=== PATIENT | female | born 1985 | race Two or more races ===

== ENCOUNTER 2020-08-25 08:53 | Emergency (ER) | payer MEDICAID ==
[~2020-08-25] VITALS: Ht 160 cm; Wt 72.6 kg
[2020-08-25 08:55] VITALS: BP 114/67
== END 2020-08-25 09:44 | disposition home or self-care (01) ==
LOC: ER 08:53
DX: F11.90 Opioid use, unspecified, uncomplicated (principal)
CPT/HCPCS: 93005

== ENCOUNTER 2020-10-14 06:33 | Emergency (ER) | payer MEDICAID ==
[~2020-10-14] VITALS: Ht 160 cm; Wt 72.6 kg
[2020-10-14] MEDS ORDERED: SODIUM CHLORIDE 0.9% 1,000 ML IV ONE ×2 (07:00)
[2020-10-14 08:06] VITALS: BP 96/66
[2020-10-14 09:12] LABS: Urine Bacteria NONE SEEN /hpf (None Seen); Urine Blood 2+ /uL (Negative); Urine Mucus FEW (None Seen); Urine Specific Gravity 1.024 (1.001-1.035); Urine Sperm PRESENT /hpf (None Seen); Urine WBC 4 /hpf (0 - 5)
[2020-10-14] MEDS ORDERED: FAMOTIDINE (10MG/ML) 2ML VL IV ONE (09:30)
[2020-10-14] MEDS ORDERED: MORPHINE SULFATE 4 MG/ML SYR/VIAL IV ONE (09:30)
[2020-10-14] MEDS ORDERED: ONDANSETRON HCL 4 MG/2 ML VIAL IV ONE (09:30)
== END 2020-10-14 09:32 | disposition home or self-care (01) ==
LOC: ER 06:33
DX: O26.891 Other specified pregnancy related conditions, first trimester (principal); R56.9 Unspecified convulsions; Z3A.10 10 weeks gestation of pregnancy; Z88.1 Allergy status to other antibiotic agents; Z87.442 Personal history of urinary calculi
CPT/HCPCS: 36415; 81001; 84702; 96360; 99283; J7030

== ENCOUNTER 2020-10-21 10:43 | Inpatient (IN) | payer MEDICAID ==
[~2020-10-21] VITALS: Ht 160 cm; Wt 72.7 kg
[2020-10-21 11:18] LABS: Basophils # (auto) 0 10 ^3/uL (0-0.2); Basophils % (auto) 0.6 % (0.0-2.0); Eosinophils # (auto) 0.2 10 ^3/uL (0-0.8); Eosinophils % (auto) 3.9 % (0.0-7.0); Hematocrit 29.6 % (36.0-46.0); Hemoglobin 9.9 g/dL (12.2-16.2); Lymphocytes # (auto) 1.7 10 ^3/uL (0.4-5.4); Lymphocytes % (auto) 27.8 % (10.0-50.0); Mean Corpuscular Hgb Conc. 33.4 g/dL (32.0-36.0); Mean Corpuscular Volume 80.8 fL (80.0-100.0); Monocytes # (auto) 0.5 10 ^3/uL (0-1.3); Monocytes % (auto) 8.3 % (0.0-12.0); Neutrophils # (auto) 3.6 10 ^3/uL (1.6-8.6); Neutrophils % (auto) 59.4 % (37.0-80.0); Platelet Count (auto) 287 10^3/uL (140-450); Red Blood Cells 3.67 10^6/uL (4.0-5.20); White Blood Cell 6.1 10^3/uL (4.4-10.8)
[2020-10-21 11:30] LABS: Albumin 3.5 g/dL (3.4-5.0); Anion Gap 5 (5-15); Blood Urea Nitrogen 12 mg/dL (7-18); Calcium 8.5 mg/dL (8.5-10.1); Carbon Dioxide 28 mmol/L (21-32); Chloride 106 mmol/L (98-107); Glucose 90 mg/dL (74-106); Potassium 3.3 mmol/L (3.5-5.1); Red Cell Distribution Width 20.1 % (11.8-14.3); Sodium 139 mmol/L (136-145)
[2020-10-21 11:36] LABS: Alanine Aminotransferase 24 U/L (13-56); Alkaline Phosphatase 109 U/L (45-117); Aspartate Aminotransferase 13 U/L (15-37); BUN/Creatinine Ratio 18.8; Bilirubin, Total 0.3 mg/dL (0.2-1.0); GFR African American 134 mL/min; GFR Non-African American 111 mL/min; Total Protein 7.1 g/dL (6.4-8.2)
[2020-10-21 11:38] LABS: Alcohol, Urine < 3.0 mg/dL (0-10); Amphetamine Screen, Urine NEGATIVE (NEGATIVE); Barbiturate Scree,Urine NEGATIVE (NEGATIVE); Benzodiazephine Screen, Urine NEGATIVE (NEGATIVE); Cannabinoid Screen, Urine NEGATIVE (NEGATIVE); Cocaine Screen, Urine POSITIVE (NEGATIVE); Opiate Scree,Urine NEGATIVE (NEGATIVE); Phencyclidine Screen, Urine NEGATIVE (NEGATIVE)
[2020-10-21] MEDS ORDERED: ONDANSETRON HCL 4 MG/2 ML VIAL IV PRN (13:45)
[2020-10-21] MEDS ORDERED: ACETAMINOPHEN 325 MG TAB PO PRN (13:45)
[2020-10-21] MEDS: SODIUM CHLORIDE 0.9% 1,000 ML IV SCH ×2 (14:08→22:24)
[2020-10-21 16:38] VITALS: BP 110/69
[2020-10-21] MEDS ORDERED: METH10T PO (19:07)
[2020-10-21] MEDS ORDERED: diphenhdrAMINE HCL 50 MG/1 ML VL IV PRN (20:00)
[2020-10-21 21:09] VITALS: BP 103/63
[2020-10-22] VITALS (7 sets, daily range): BP systolic 92–122; BP diastolic 47–147
[2020-10-22] MEDS: SODIUM CHLORIDE 0.9% 1,000 ML IV SCH ×3 (04:48→21:45)
[2020-10-22 07:11] LABS: Basophils # (auto) 0 10 ^3/uL (0-0.2); Basophils % (auto) 0.3 % (0.0-2.0); Eosinophils # (auto) 0.2 10 ^3/uL (0-0.8); Eosinophils % (auto) 3.5 % (0.0-7.0); Hematocrit 27.6 % (36.0-46.0); Hemoglobin 9.2 g/dL (12.2-16.2); Lymphocytes # (auto) 1.9 10 ^3/uL (0.4-5.4); Mean Corpuscular Hemoglobin 27.4 pg (28.0-32.0); Mean Corpuscular Hgb Conc. 33.5 g/dL (32.0-36.0); Mean Corpuscular Volume 81.8 fL (80.0-100.0); Monocytes # (auto) 0.4 10 ^3/uL (0-1.3); Monocytes % (auto) 6.1 % (0.0-12.0); Neutrophils # (auto) 3.8 10 ^3/uL (1.6-8.6); Neutrophils % (auto) 60.1 % (37.0-80.0); Nucleated Red Blood Cells % 0.1 %; Platelet Count (auto) 228 10^3/uL (140-450); Red Blood Cells 3.37 10^6/uL (4.0-5.20); Red Cell Distribution Width 20.4 % (11.8-14.3); White Blood Cell 6.3 10^3/uL (4.4-10.8)
[2020-10-22 07:30] LABS: Albumin 2.8 g/dL (3.4-5.0); BUN/Creatinine Ratio 14.5; Calcium 7.5 mg/dL (8.5-10.1); Magnesium 2.1 mg/dL (1.6-2.6); Potassium 4.3 mmol/L (3.5-5.1)
[2020-10-22 07:33] LABS: Bilirubin, Total 0.2 mg/dL (0.2-1.0); Total Protein 5.8 g/dL (6.4-8.2)
[2020-10-22] MEDS ORDERED: SODIUM CHLORIDE 0.9% 500 ML IV ONE ×2 (07:45)
[2020-10-23 05:00] VITALS: BP 105/59
[2020-10-23] MEDS: SODIUM CHLORIDE 0.9% 1,000 ML IV SCH ×3 (05:45→21:35)
[2020-10-23 08:08] LABS: Basophils # (auto) 0 10 ^3/uL (0-0.2); Basophils % (auto) 0.5 % (0.0-2.0); Eosinophils # (auto) 0.2 10 ^3/uL (0-0.8); Eosinophils % (auto) 6.1 % (0.0-7.0); Hematocrit 27.3 % (36.0-46.0); Hemoglobin 9.1 g/dL (12.2-16.2); Lymphocytes # (auto) 1.7 10 ^3/uL (0.4-5.4); Lymphocytes % (auto) 54.4 % (10.0-50.0); Mean Corpuscular Hemoglobin 27.2 pg (28.0-32.0); Mean Corpuscular Hgb Conc. 33.2 g/dL (32.0-36.0); Mean Corpuscular Volume 81.9 fL (80.0-100.0); Monocytes # (auto) 0.2 10 ^3/uL (0-1.3); Monocytes % (auto) 6.1 % (0.0-12.0); Neutrophils % (auto) 32.9 % (37.0-80.0); Nucleated Red Blood Cells % 0.2 %; Platelet Count (auto) 221 10^3/uL (140-450); Red Blood Cells 3.34 10^6/uL (4.0-5.20); White Blood Cell 3.1 10^3/uL (4.4-10.8)
[2020-10-23 08:14] LABS: Red Cell Distribution Width 20.9 % (11.8-14.3)
[2020-10-23 08:15] VITALS: BP 116/75
[2020-10-23 08:55] VITALS: BP 116/75
[2020-10-23 13:00] VITALS: BP 98/59
[2020-10-23 17:00] VITALS: BP 103/64
[2020-10-23] MEDS: MORPHINE SULF INJ 2 MG/ML SYRINGE 1ML IV PRN (18:57)
[2020-10-23] MEDS: METHADONE HCL 10 MG TAB PO SCH (21:32)
[2020-10-23 22:00] VITALS: BP 97/60
[2020-10-23] MEDS ORDERED: METHADONE HCL 10 MG TAB PO SCH (22:00)
[2020-10-24] MEDS: SODIUM CHLORIDE 0.9% 1,000 ML IV SCH (03:51)
[2020-10-24 05:00] VITALS: BP 124/67
[2020-10-24 07:45] LABS: Basophils # (auto) 0 10 ^3/uL (0-0.2); Basophils % (auto) 0.8 % (0.0-2.0); Eosinophils # (auto) 0.3 10 ^3/uL (0-0.8); Eosinophils % (auto) 5.7 % (0.0-7.0); Hematocrit 27.9 % (36.0-46.0); Hemoglobin 9.6 g/dL (12.2-16.2); Lymphocytes # (auto) 2.1 10 ^3/uL (0.4-5.4); Lymphocytes % (auto) 44.4 % (10.0-50.0); Mean Corpuscular Hemoglobin 27.9 pg (28.0-32.0); Mean Corpuscular Hgb Conc. 34.3 g/dL (32.0-36.0); Mean Corpuscular Volume 81.3 fL (80.0-100.0); Monocytes # (auto) 0.3 10 ^3/uL (0-1.3); Monocytes % (auto) 5.8 % (0.0-12.0); Neutrophils % (auto) 43.3 % (37.0-80.0); Nucleated Red Blood Cells % 0.1 %; Platelet Count (auto) 218 10^3/uL (140-450); Red Blood Cells 3.43 10^6/uL (4.0-5.20); Red Cell Distribution Width 20.3 % (11.8-14.3); White Blood Cell 4.6 10^3/uL (4.4-10.8)
[2020-10-24 08:15] VITALS: BP 98/56
[2020-10-24] MEDS: MORPHINE SULF INJ 2 MG/ML SYRINGE 1ML IV PRN (08:31)
[2020-10-24 09:00] VITALS: BP 98/74
[2020-10-24] MEDS: METHADONE HCL 10 MG TAB PO SCH (10:45)
== END 2020-10-24 12:20 | disposition home or self-care (01) | DRG 566 ==
LOC: EEVIPCON 10:43 → EDBD 10:43 → ER 10:43 → TELE 10:44 → TELE-EAST 14:57 → TELE-WESTW 10-22 03:51
PROVIDERS: ADMIT Internal Medicine; ATTEND Internal Medicine
DX: O99.351 Diseases of the nervous system complicating pregnancy, first trimester (principal); G92 Toxic encephalopathy; F11.20 Opioid dependence, uncomplicated; Z20.822 Contact with and (suspected) exposure to COVID-19; O03.4 Incomplete spontaneous abortion without complication; M19.90 Unspecified osteoarthritis, unspecified site; O36.80X0 Pregnancy with inconclusive fetal viability, not applicable or unspecified; F17.200 Nicotine dependence, unspecified, uncomplicated; O99.011 Anemia complicating pregnancy, first trimester; D50.9 Iron deficiency anemia, unspecified; T78.40XA Allergy, unspecified, initial encounter; O99.321 Drug use complicating pregnancy, first trimester; Z88.6 Allergy status to analgesic agent; Z88.1 Allergy status to other antibiotic agents; Z91.013 Allergy to seafood; Z87.442 Personal history of urinary calculi; O09.529 Supervision of elderly multigravida, unspecified trimester
CPT/HCPCS: 36415; 76801; 76817; 80053; 80307; 83735; 84484; 84702; 85025; 87426; 93005; 93306; 95819; G0378

== ENCOUNTER 2022-03-26 05:27 | Emergency (ER) | payer MEDICAID ==
[~2022-03-26] VITALS: Ht 160 cm; Wt 69.0 kg
[~2022-03-26 05:27] MED LIST: METH10T PO
[2022-03-26] MEDS ORDERED: HYDR-3682 PO (05:45)
[2022-03-26] MEDS ORDERED: FAMOTIDINE (10MG/ML) 2ML VL IV ONE (05:45)
[2022-03-26] MEDS ORDERED: DexAMETHasone SOD PHOS 10MG/1ML VIAL INJ IV ONE (05:45)
[2022-03-26] MEDS ORDERED: METH4PAK PO (05:45)
[2022-03-26] MEDS ORDERED: diphenhdrAMINE HCL 50 MG/1 ML VL IV ONE ×2 (07:00→10:00)
[2022-03-26] MEDS ORDERED: FAMO20TA10 PO (13:26)
[2022-03-26] MEDS ORDERED: DIPH25CA66 PO (13:26)
[2022-03-26] MEDS ORDERED: PRED20TA2 PO (13:26)
[2022-03-26 14:13] VITALS: BP 116/78
== END 2022-03-26 14:15 | disposition home or self-care (01) ==
LOC: ER 05:27
DX: T78.40XA Allergy, unspecified, initial encounter (principal); Z79.899 Other long term (current) drug therapy; Z88.1 Allergy status to other antibiotic agents; Z88.8 Allergy status to other drugs, medicaments and biological substances; Z91.013 Allergy to seafood; Y92.89 Other specified places as the place of occurrence of the external cause
CPT/HCPCS: 96374; 96375; 99285; J1100; J1200; J3490

== ENCOUNTER 2022-05-12 15:09 | Emergency (ER) | payer MEDICAID, OTHER ==
[~2022-05-12] VITALS: Ht 167.6 cm; Wt 63.6 kg
[~2022-05-12 15:09] MED LIST changes: +DIPH25CA66 PO; +FAMO20TA10 PO; +HYDR-3682 PO; +METH4PAK PO; +PRED20TA2 PO
[2022-05-12 19:15] VITALS: BP 116/64
[2022-05-12] MEDS ORDERED: ONDANSETRON ODT 4 MG TAB PO ONE (19:15)
[2022-05-12] MEDS ORDERED: MORPHINE SULFATE 4 MG/ML SYR/VIAL IM ONE (19:15)
[2022-05-12] MEDS ORDERED: ONDANSETRON HCL 4 MG/2 ML VIAL ONE (19:17)
[2022-05-12] MEDS ORDERED: HYDR-4902 PO (20:27)
[2022-05-12] MEDS ORDERED: ONDA-144 PO (20:27)
[2022-05-12] MEDS ORDERED: CLIN300C8 PO (20:27)
[2022-05-12] MEDS ORDERED: EPIN0.1I11 IJ (20:27)
[2022-05-12] MEDS ORDERED: NEOMYCIN-BACITRACIN-POLYM UNITDOSE PKG TOP OINT TOP ONE (20:30)
[2022-05-12] MEDS ORDERED: TETANUS-DIPTH-ACEL PERTUSSIS 0.5ML SYR Tdap IM ONE (21:00)
[2022-05-12] MEDS ORDERED: NEOMYCIN-BACITRACIN-POLYM 15GM TOP OINT TOP SCH (22:00)
== END 2022-05-12 21:07 | disposition home or self-care (01) ==
LOC: EDBD 15:09 → EDSEX 15:09 → ER 15:09
DX: L03.116 Cellulitis of left lower limb (principal); F17.210 Nicotine dependence, cigarettes, uncomplicated; Z79.899 Other long term (current) drug therapy; Z79.2 Long term (current) use of antibiotics; Z88.1 Allergy status to other antibiotic agents; Z88.8 Allergy status to other drugs, medicaments and biological substances; Z91.013 Allergy to seafood
CPT/HCPCS: 90471; 90715; 96372; 99284; J2270; J2405; Q0162

== ENCOUNTER 2022-05-18 04:48 | Emergency (ER) | payer MEDICAID, OTHER ==
[~2022-05-18] VITALS: Ht 160 cm; Wt 68.0 kg
[~2022-05-18 04:48] MED LIST changes: +CLIN300C8 PO; +EPIN0.1I11 IJ; +HYDR-4902 PO; +ONDA-144 PO
[2022-05-18 06:08] VITALS: BP 133/88
[2022-05-18] MEDS ORDERED: KETOROLAC TROMETH 60MG/2ML VIAL IM ONE (07:15)
== END 2022-05-18 07:35 | disposition home or self-care (01) ==
LOC: ER 04:48
DX: S80.812A Abrasion, left lower leg, initial encounter (principal); F17.210 Nicotine dependence, cigarettes, uncomplicated; Z79.2 Long term (current) use of antibiotics; Z79.899 Other long term (current) drug therapy; Z88.1 Allergy status to other antibiotic agents; Z88.8 Allergy status to other drugs, medicaments and biological substances; V89.2XXA Person injured in unspecified motor-vehicle accident, traffic, initial encounter; Y93.89 Activity, other specified; Y92.89 Other specified places as the place of occurrence of the external cause; Y99.8 Other external cause status
CPT/HCPCS: 96372; 99283; J1885

== ENCOUNTER 2022-06-07 16:40 | Inpatient (IN) | payer MEDICAID ==
[~2022-06-07] VITALS: Ht 160 cm; Wt 91.0 kg
[2022-06-07] MEDS ORDERED: SODIUM CHLORIDE 0.9% 1,000 ML IVB ONE (17:00)
[2022-06-07 17:57] LABS: Basophils # (auto) 0.1 10 ^3/uL (0-0.2); Basophils % (auto) 1.1 % (0.0-2.0); Eosinophils # (auto) 0.1 10 ^3/uL (0-0.8); Eosinophils % (auto) 1.1 % (0.0-7.0); Hematocrit 28.2 % (36.0-46.0); Hemoglobin 9.3 g/dL (12.2-16.2); Lymphocytes # (auto) 0.5 10 ^3/uL (0.4-5.4); Lymphocytes % (auto) 4.6 % (10.0-50.0); Mean Corpuscular Hemoglobin 28.2 pg (28.0-32.0); Mean Corpuscular Hgb Conc. 33.1 g/dL (32.0-36.0); Mean Corpuscular Volume 85.2 fL (80.0-100.0); Monocytes # (auto) 0.5 10 ^3/uL (0-1.3); Monocytes % (auto) 4.5 % (0.0-12.0); Neutrophils # (auto) 9.9 10 ^3/uL (1.6-8.6); Neutrophils % (auto) 88.7 % (37.0-80.0); Nucleated Red Blood Cells % 0.1 %; Red Blood Cells 3.31 10^6/uL (4.0-5.20); Red Cell Distribution Width 18.8 % (11.8-14.3); White Blood Cell 11.2 10^3/uL (4.4-10.8)
[2022-06-07 18:25] LABS: Albumin 3.2 g/dL (3.4-5.0); Anion Gap 6 (5-15); BUN/Creatinine Ratio 21.7; Blood Alcohol < 3.0 mg/dL (0-5); Blood Urea Nitrogen 15 mg/dL (7-18); Calcium 7.5 mg/dL (8.5-10.1); Carbon Dioxide 26 mmol/L (21-32); Chloride 104 mmol/L (98-107); GFR African American 122 mL/min; GFR Non-African American 101 mL/min; Glucose 71 mg/dL (74-106); Magnesium 1.6 mg/dL (1.6-2.6); Potassium 3.4 mmol/L (3.5-5.1); Sodium 136 mmol/L (136-145)
[2022-06-07 18:29] LABS: Acetaminophen < 2.0 ug/mL (10-30); Alanine Aminotransferase 57 U/L (13-56); Alkaline Phosphatase 102 U/L (45-117); Aspartate Aminotransferase 84 U/L (15-37); Bilirubin, Total 0.5 mg/dL (0.2-1.0); Salicylate < 1.7 mg/dL (2.8-20.0); Total Protein 6.5 g/dL (6.4-8.2)
[2022-06-07] MEDS: SODIUM CHLORIDE 0.9% 1,000 ML IV SCH (18:30)
[2022-06-07] MEDS ORDERED: chlordiazePOXIDE HCL 25 MG CAP PO PRN (18:30)
[2022-06-07] MEDS ORDERED: ACETAMINOPHEN 325 MG TAB PO PRN (18:30)
[2022-06-07] MEDS ORDERED: ONDANSETRON HCL 4 MG/2 ML VIAL IV PRN (18:30)
[2022-06-07 19:00] LABS: Cholesterol 195 mg/dL (< 200)
[2022-06-07] MEDS ORDERED: cefTRIAXone 1GM/50ML D5W 50 ML IV ONE (19:00)
[2022-06-07] MEDS ORDERED: POTASSIUM EFFERVESENT TAB 25 MEQ PO ONE (19:00)
[2022-06-07 19:02] LABS: HDL Cholesterol 95 mg/dL (40-59); LDL Cholesterol 102 mg/dL (< 100); Triglycerides 72 mg/dL (< 150)
[2022-06-07] MEDS ORDERED: LORazepam 2MG/ML-1ML VIAL IV PRN (21:30)
[2022-06-07] MEDS: ASCORBIC ACID 500 MG TAB PO SCH (22:00)
[2022-06-08] MEDS: SODIUM CHLORIDE 0.9% 1,000 ML IV SCH ×2 (02:50→11:30)
[2022-06-08 06:42] LABS: Basophils # (auto) 0 10 ^3/uL (0-0.2); Basophils % (auto) 0.8 % (0.0-2.0); Eosinophils # (auto) 0.2 10 ^3/uL (0-0.8); Eosinophils % (auto) 3.3 % (0.0-7.0); Hematocrit 25.7 % (36.0-46.0); Hemoglobin 8.6 g/dL (12.2-16.2); Lymphocytes # (auto) 1.6 10 ^3/uL (0.4-5.4); Lymphocytes % (auto) 29.6 % (10.0-50.0); Mean Corpuscular Hemoglobin 28.7 pg (28.0-32.0); Mean Corpuscular Hgb Conc. 33.4 g/dL (32.0-36.0); Monocytes # (auto) 0.5 10 ^3/uL (0-1.3); Monocytes % (auto) 8.3 % (0.0-12.0); Neutrophils # (auto) 3.2 10 ^3/uL (1.6-8.6); Red Blood Cells 2.99 10^6/uL (4.0-5.20); Red Cell Distribution Width 18.9 % (11.8-14.3); White Blood Cell 5.6 10^3/uL (4.4-10.8)
[2022-06-08] MEDS ORDERED: cefTRIAXone 1GM/50ML D5W 50 ML IV SCH (09:00)
[2022-06-08] MEDS ORDERED: ZINC SULFATE 220mg CAP or TAB PO SCH (10:00)
[2022-06-08] MEDS ORDERED: ENOXAPARIN SOD 40 MG/0.4 ML SYRINGE SC SCH (10:00)
[2022-06-08] MEDS ORDERED: MULTIPLE VITAMIN TAB PO SCH (10:00)
[2022-06-08] MEDS ORDERED: BACITRACIN TOP OINT 1 UD PKG TOP SCH (10:00)
[2022-06-08] MEDS: ASCORBIC ACID 500 MG TAB PO SCH (10:15)
[2022-06-08] MEDS ORDERED: FERR-7 PO (13:05)
[2022-06-08] MEDS ORDERED: ASCO500C49 PO (13:05)
[2022-06-08 14:15] VITALS: BP 105/69
[2022-06-09] MEDS ORDERED: FERROUS SULFATE 300 MG/5 ML ORAL LIQ PO SCH (12:00)
== END 2022-06-08 14:18 | disposition home or self-care (01) | DRG 812 ==
LOC: ER 16:40 → EDBD 16:40 → OVERFLOW 18:30
PROVIDERS: ADMIT Nurse Practitioner Family; ATTEND Hospitalist
DX: T40.3X1A Poisoning by methadone, accidental (unintentional), initial encounter (principal); G92.8 Other toxic encephalopathy; E46 Unspecified protein-calorie malnutrition; E83.51 Hypocalcemia; F11.10 Opioid abuse, uncomplicated; D72.829 Elevated white blood cell count, unspecified; D50.9 Iron deficiency anemia, unspecified; T39.1X1A Poisoning by 4-Aminophenol derivatives, accidental (unintentional), initial encounter; G89.29 Other chronic pain; E87.6 Hypokalemia; Z20.822 Contact with and (suspected) exposure to COVID-19; F17.210 Nicotine dependence, cigarettes, uncomplicated; E66.01 Morbid (severe) obesity due to excess calories; Z88.8 Allergy status to other drugs, medicaments and biological substances; Z91.013 Allergy to seafood; Z68.35 Body mass index [BMI] 35.0-35.9, adult; Z87.442 Personal history of urinary calculi; Y92.89 Other specified places as the place of occurrence of the external cause
CPT/HCPCS: 36415; 70450; 70551; 71045; 80053; 80061; 80320; 80329; 82728; 82962; 83036; 83540; 83550; 83735; 84443; 84702; 85025; 87040; 87426; 93005; 96361; 96365; 96366; 96372; G0378; J0696

== ENCOUNTER 2023-01-02 09:06 | Emergency (ER) | payer MEDICAID ==
[~2023-01-02] VITALS: Ht 160 cm; Wt 72.7 kg
[~2023-01-02 09:06] MED LIST changes: +ASCO500C49 PO; +CLIN300C70 PO; -CLIN300C8 PO; +FERR-7 PO
[2023-01-02 10:04] LABS: Basophils # (auto) 0 10 ^3/uL (0-0.2); Basophils % (auto) 0.9 % (0.0-2.0); Eosinophils # (auto) 0.1 10 ^3/uL (0-0.8); Eosinophils % (auto) 2.5 % (0.0-7.0); Hematocrit 34.3 % (36.0-46.0); Hemoglobin 11.8 g/dL (12.2-16.2); Lymphocytes # (auto) 1.1 10 ^3/uL (0.4-5.4); Lymphocytes % (auto) 38.6 % (10.0-50.0); Mean Corpuscular Hemoglobin 32.3 pg (28.0-32.0); Mean Corpuscular Hgb Conc. 34.4 g/dL (32.0-36.0); Mean Corpuscular Volume 94.2 fL (80.0-100.0); Monocytes # (auto) 0.1 10 ^3/uL (0-1.3); Monocytes % (auto) 1.9 % (0.0-12.0); Neutrophils # (auto) 1.6 10 ^3/uL (1.6-8.6); Neutrophils % (auto) 56.1 % (37.0-80.0); Red Blood Cells 3.64 10^6/uL (4.0-5.20); Red Cell Distribution Width 18.8 % (11.8-14.3); White Blood Cell 2.8 10^3/uL (4.4-10.8)
[2023-01-02 10:08] LABS: Urine Bacteria FEW /hpf (None Seen); Urine Blood Negative /uL (Negative); Urine Mucus FEW (None Seen); Urine Specific Gravity 1.017 (1.001-1.035); Urine WBC 15 /hpf (0 - 5)
[2023-01-02] MEDS ORDERED: NITR-87 PO (10:15)
[2023-01-02 10:45] LABS: Albumin 3.5 g/dL (3.4-5.0); Calcium 7.5 mg/dL (8.5-10.1); Potassium 3.6 mmol/L (3.5-5.1)
[2023-01-02 10:49] LABS: BUN/Creatinine Ratio 10.4 (10.0-20.0); Bilirubin, Total 0.9 mg/dL (0.2-1.0); Total Protein 6.3 g/dL (6.4-8.2)
[2023-01-02] MEDS ORDERED: KETOROLAC TROMETH 30 MG/ML 1ML VIAL IV ONE (11:15)
[2023-01-02] MEDS ORDERED: MORPHINE SULFATE INJ 2 MG/ml SYRG IV ONE (12:30)
[2023-01-02 13:54] VITALS: BP 99/65
== END 2023-01-02 13:57 | disposition home or self-care (01) ==
LOC: ER 09:06
DX: N39.0 Urinary tract infection, site not specified (principal); F17.210 Nicotine dependence, cigarettes, uncomplicated; R10.2 Pelvic and perineal pain
CPT/HCPCS: 36415; 74176; 76705; 80053; 81001; 84702; 85025; 93005; 96374; 96375; 99285; J1885; J2270

== ENCOUNTER 2024-05-28 06:47 | Inpatient (IN) | payer MEDICAID ==
[~2024-05-28] VITALS: Ht 160 cm; Wt 55.2 kg
[~2024-05-28 06:47] MED LIST changes: +CLIN1CAP70 PO; -CLIN300C70 PO; +METH-1214 PO; -METH10T PO; +NITR-87 PO
[2024-05-28 07:40] VITALS: O2SAT 99
[2024-05-28 07:48] LABS: Basophils # (auto) 0.1 10 ^3/uL (0-0.2); Eosinophils # (auto) 0.1 10 ^3/uL (0-0.8); Eosinophils % (auto) 0.8 % (0.0-7.0); Hemoglobin 10.2 g/dL (12.2-16.2); Lymphocytes # (auto) 1.5 10 ^3/uL (0.4-5.4); Mean Corpuscular Hemoglobin 36.5 pg (28.0-32.0); Monocytes # (auto) 0.4 10 ^3/uL (0-1.3); Monocytes % (auto) 5.1 % (0.0-12.0)
[2024-05-28 07:49] LABS: Basophils % (auto) 1.1 % (0.0-2.0); Lymphocytes % (auto) 21.5 % (10.0-50.0); Mean Corpuscular Volume 104.3 fL (80.0-100.0); Neutrophils % (auto) 71.5 % (37.0-80.0); Nucleated Red Blood Cells % 0.1 %; Platelet Count (auto) 255 10^3/uL (140-450); Red Blood Cells 2.78 10^6/uL (4.0-5.20); Red Cell Distribution Width 15.1 % (11.8-14.3)
[2024-05-28] MEDS: SODIUM CHLORIDE 0.9% 1,000 ML IV ONE ×2 (07:54→09:15)
[2024-05-28] MEDS: ONDANSETRON HCL 4 MG/2 ML VIAL IV ONE (07:55)
[2024-05-28 07:56] LABS: Urine Bacteria None Seen /hpf (None Seen)
[2024-05-28 08:01] LABS: Magnesium 1.3 mg/dL (1.6-2.6)
[2024-05-28 08:04] LABS: INR 1.47 (0.9-1.15); Partial Thromboplastin Time 32.5 SEC (24.5-34.5); Prothrombin Time 15.1 sec (9.3-11.8)
[2024-05-28 08:17] LABS: Lactic Acid w/Reflex 2.4 mmol/L (0.4-2.0)
[2024-05-28 08:18] LABS: Urine Blood Negative /uL (Negative); Urine Clarity Turbid (Clear); Urine Color Yellow (Yellow); Urine Mucus FEW (None Seen); Urine Protein, UAD TRACE (Negative); Urine Specific Gravity 1.015 (1.001-1.035); Urine Urobilinogen Normal (Negative); Urine WBC 1 /hpf (0 - 5)
[2024-05-28] MEDS: MORPHINE SULFATE INJ 2 MG/ml SYRG IM ONE (09:32)
[2024-05-28] MEDS: MAGNESIUM SULFATE 1GM/100ML 100 ML IV STA (09:35)
[2024-05-28] MEDS: PIPERACILLIN-TAZOB 3.375GM 100 ML IV ONE (10:08)
[2024-05-28] MEDS ORDERED: ACETAMINOPHEN 325 MG TAB PO PRN (12:45)
[2024-05-28] MEDS ORDERED: NITROGLYCERIN 0.4 MG SL TAB SL PRN (12:45)
[2024-05-28] MEDS ORDERED: MORPHINE SULFATE INJ 2 MG/ml SYRG IV PRN (12:45)
[2024-05-28] MEDS: MORPHINE SULFATE INJ 2 MG/ml SYRG IV PRN (13:47)
[2024-05-28] MEDS: ONDANSETRON HCL 4 MG/2 ML VIAL IV PRN (13:47)
[2024-05-28] MEDS: MAGNESIUM SULFATE 1GM/100ML 100 ML IV SCH (13:56)
[2024-05-28] MEDS ORDERED: PIPERACILLIN-TAZOB 3.375GM 100 ML IV SCH ×2 (14:00→14:30)
[2024-05-28 14:03] LABS: Alanine Aminotransferase 28 U/L (7-40); Alkaline Phosphatase 205 U/L (46-116); Anion Gap 8 (5-15); Aspartate Aminotransferase 71 U/L (13-40); Calcium 8.2 mg/dL (8.7-10.4); Carbon Dioxide 25 mmol/L (20-31); Chloride 108 mmol/L (98-107); Glucose 84 mg/dL (74-106); Potassium 3.7 mmol/L (3.5-5.1); Sodium 141 mmol/L (136-145)
[2024-05-28 14:04] LABS: Albumin 2.9 g/dL (3.2-4.8); Bilirubin, Total 3.4 mg/dL (0.2-1.0)
[2024-05-28 14:05] LABS: Blood Urea Nitrogen < 5 mg/dL (9-23)
[2024-05-28] MEDS ORDERED: VANCOMYCIN PER PHARMACY 0 MG IV SCH (16:15)
[2024-05-28] MEDS: MICAFUNGIN SODIUM 100 MG in SODIUM CHL 0.9% 100 ML IV ONE (16:28)
[2024-05-28] MEDS ORDERED: VANCOMYCIN 1GM/200ML PREMIX 200 ML IV SCH (17:00)
[2024-05-28] MEDS ORDERED: VANCOMYCIN 1.5GM/300ML 300 ML IV ONE (17:15)
[2024-05-28] MEDS: SODIUM CHL 0.9% IV ONE (17:30)
[2024-05-28] MEDS: MICAFUNGIN SODIUM IV ONE (17:30)
[2024-05-28 17:38] VITALS: BP 135/70; PULSE 92; RESP 20; TEMP 98.1; O2SAT 99
[2024-05-28] MEDS: VANCOMYCIN 1GM/200ML PREMIX 200 ML IV ONE (17:52)
[2024-05-28 18:06] VITALS: BP 135/70; PULSE 92; RESP 20; TEMP 98.1; O2SAT 99
[2024-05-28 20:00] VITALS: PULSE 79; PULSE 95; RESP 18; O2SAT 99
[2024-05-28 21:00] VITALS: BP 116/77; PULSE 79; RESP 18; TEMP 98.2; O2SAT 99
[2024-05-28] MEDS: PIPERACILLIN-TAZOB 3.375GM 100 ML IV SCH (22:42)
[2024-05-28] MEDS: diphenhdrAMINE HCL 50 MG/1 ML VL IV ONE (22:42)
[2024-05-28] MEDS: QUEtiapine FUMARATE 25 MG TAB PO SCH (22:43)
[2024-05-28] MEDS: HYDROcodone-ACET 5/325MG TAB PO PRN (23:05)
[2024-05-29] VITALS (8 sets, daily range): BP systolic 90–118; BP diastolic 53–71; PULSE 61–113; RESP 18–21; TEMP 97.5–98.4; O2SAT 96–100
[2024-05-29] MEDS: FOLIC ACID 1 MG, MULTIPLE VITAMIN 10 ML, MAGNESIUM SULF SDV 50% 8 MEQ, THIAMINE INJ 100... INJ SCH (02:34)
[2024-05-29] MEDS: VANCOMYCIN 1GM/200ML PREMIX 200 ML IV SCH (05:04)
[2024-05-29] MEDS: FAMOTIDINE (10MG/ML) 2ML VL IV SCH (06:56)
[2024-05-29] MEDS: diphenhdrAMINE HCL 50 MG/1 ML VL IV PRN (06:56)
[2024-05-29] MEDS ORDERED: MICAFUNGIN SODIUM 100 MG in SODIUM CHL 0.9% 100 ML IV SCH (10:00)
[2024-05-29] MEDS: MICAFUNGIN SODIUM 150 MG in SODIUM CHL 0.9% 100 ML IV SCH (10:07)
[2024-05-29] MEDS: hydrOXYzine 25 MG TAB or CAP PO SCH (14:00)
[2024-05-29] MEDS: MAGNESIUM OXIDE 400 MG TAB PO SCH (21:31)
[2024-05-29] MEDS: MULTIPLE VITAMIN TAB PO SCH (21:32)
[2024-05-29] MEDS: FOLIC ACID 1 MG TAB PO SCH (21:32)
[2024-05-29] MEDS: THIAMINE HCL 100 MG TAB PO SCH (21:33)
[2024-05-29] MEDS: CHOLESTYRAMINE 4 GM POWDER GT SCH (23:06)
[2024-05-30 01:00] VITALS: BP 104/68; PULSE 75; RESP 17; TEMP 97.7; O2SAT 97
[2024-05-30 05:00] VITALS: BP 100/55; PULSE 72; RESP 18; TEMP 98.2; O2SAT 98
[2024-05-30 05:19] LABS: Basophils # (auto) 0 10 ^3/uL (0-0.2); Basophils % (auto) 1.1 % (0.0-2.0); Eosinophils # (auto) 0.1 10 ^3/uL (0-0.8); Hemoglobin 7.5 g/dL (12.2-16.2); Monocytes # (auto) 0.1 10 ^3/uL (0-1.3); Nucleated Red Blood Cells % 0.1 %; White Blood Cell 3.3 10^3/uL (4.4-10.8)
[2024-05-30 05:21] LABS: Eosinophils % (auto) 3.3 % (0.0-7.0); Hematocrit 21.6 % (36.0-46.0); Lymphocytes % (auto) 31.1 % (10.0-50.0); Mean Corpuscular Hgb Conc. 34.8 g/dL (32.0-36.0); Mean Corpuscular Volume 103.6 fL (80.0-100.0); Monocytes % (auto) 4.1 % (0.0-12.0); Neutrophils % (auto) 60.4 % (37.0-80.0); Platelet Count (auto) 127 10^3/uL (140-450); Red Blood Cells 2.08 10^6/uL (4.0-5.20); Red Cell Distribution Width 15.1 % (11.8-14.3)
[2024-05-30 08:00] VITALS: PULSE 70; PULSE 74; RESP 18; O2SAT 98
[2024-05-30 09:00] VITALS: BP 95/62; PULSE 70; RESP 18; TEMP 97.7; O2SAT 98
[2024-05-30 12:36] VITALS: BP 116/65; PULSE 116; RESP 16; TEMP 98.7; O2SAT 92
[2024-05-30] MEDS ORDERED: VANCOMYCIN 1GM/200ML PREMIX 200 ML IV SCH (22:00)
== END 2024-05-30 14:10 | disposition left against medical advice (07) | DRG 249 ==
LOC: EDBD 06:47 → ER 06:47 → TELE 12:39 → TELE-EAST 17:39
PROVIDERS: ADMIT Internal Medicine; ATTEND Internal Medicine
DX: K52.9 Noninfective gastroenteritis and colitis, unspecified (principal); B37.81 Candidal esophagitis; D68.9 Coagulation defect, unspecified; D50.9 Iron deficiency anemia, unspecified; F10.20 Alcohol dependence, uncomplicated; F17.210 Nicotine dependence, cigarettes, uncomplicated; K70.9 Alcoholic liver disease, unspecified; F41.9 Anxiety disorder, unspecified; Z53.29 Procedure and treatment not carried out because of patient's decision for other reasons; K29.70 Gastritis, unspecified, without bleeding; K76.0 Fatty (change of) liver, not elsewhere classified; K80.20 Calculus of gallbladder without cholecystitis without obstruction; G40.909 Epilepsy, unspecified, not intractable, without status epilepticus; I12.9 Hypertensive chronic kidney disease with stage 1 through stage 4 chronic kidney disease, or unspecified chronic kidney disease; N18.9 Chronic kidney disease, unspecified; Z91.013 Allergy to seafood; Z88.0 Allergy status to penicillin; Y90.9 Presence of alcohol in blood, level not specified
CPT/HCPCS: 36415; 74176; 76705; 80053; 80202; 81001; 81025; 82140; 82270; 82565; 83605; 83690; 83735; 83986; 84702; 85025; 85048; 85610; 85730; 87040; 87081; 87086; 87493; 96361; 96365; 96366; 96367; 96368; 96372; 96375; G0378; J2248; J2405; J2543; J3490

== ENCOUNTER 2024-05-30 17:15 | Emergency (ER) | payer MEDICAID ==
[~2024-05-30] VITALS: Ht 160 cm; Wt 55.2 kg
[2024-05-30 18:11] LABS: Basophils # (auto) 0 10 ^3/uL (0-0.2); Basophils % (auto) 0.6 % (0.0-2.0); Eosinophils # (auto) 0 10 ^3/uL (0-0.8); Hemoglobin 8.5 g/dL (12.2-16.2); Lymphocytes # (auto) 0.5 10 ^3/uL (0.4-5.4); Monocytes # (auto) 0.2 10 ^3/uL (0-1.3)
[2024-05-30 18:12] LABS: Eosinophils % (auto) 0.3 % (0.0-7.0); Hematocrit 24.4 % (36.0-46.0); Lymphocytes % (auto) 6.2 % (10.0-50.0); Mean Corpuscular Hgb Conc. 34.8 g/dL (32.0-36.0); Mean Corpuscular Volume 103.5 fL (80.0-100.0); Neutrophils # (auto) 7.1 10 ^3/uL (1.6-8.6); Neutrophils % (auto) 89.9 % (37.0-80.0); Platelet Count (auto) 155 10^3/uL (140-450); Red Blood Cells 2.36 10^6/uL (4.0-5.20); Red Cell Distribution Width 14.8 % (11.8-14.3); White Blood Cell 7.9 10^3/uL (4.4-10.8)
[2024-05-30 19:07] LABS: Alanine Aminotransferase 25 U/L (7-40); Albumin 3.4 g/dL (3.2-4.8); Alkaline Phosphatase 181 U/L (46-116); Anion Gap 8 (5-15); Aspartate Aminotransferase 68 U/L (13-40); Bilirubin, Total 3.7 mg/dL (0.2-1.0); Calcium 8.6 mg/dL (8.7-10.4); Carbon Dioxide 21 mmol/L (20-31); Chloride 107 mmol/L (98-107); Glucose 128 mg/dL (74-106); Lipase 23 U/L (12-53); Magnesium 1.4 mg/dL (1.6-2.6); Potassium 3.2 mmol/L (3.5-5.1); Sodium 136 mmol/L (136-145)
[2024-05-30 19:08] LABS: Total Protein 6.7 g/dL (5.7-8.2)
[2024-05-30 19:14] LABS: BUN/Creatinine Ratio 5.6 (10.0-20.0); Blood Urea Nitrogen < 5 mg/dL (9-23)
[2024-05-30 21:34] LABS: Urine Bacteria None Seen /hpf (None Seen)
[2024-05-30 21:47] LABS: Urine Blood Negative /uL (Negative); Urine Clarity Turbid (Clear); Urine Color Yellow (Yellow); Urine Protein, UAD Negative (Negative); Urine Specific Gravity 1.014 (1.001-1.035); Urine Urobilinogen Normal (Negative); Urine WBC 1 /hpf (0 - 5); Urine pH 5.5 (5.0-9.0)
[2024-05-30 23:14] VITALS: TEMP 98.8
[2024-05-30] MEDS: POTASSIUM CHL 20 Meq TABLET PO ONE (23:20)
[2024-05-30] MEDS: LACTULOSE 20Gm/30ML SOLN PO ONE (23:22)
[2024-05-31] MEDS: MAGNESIUM SULFATE 1GM/100ML 100 ML IV ONE (01:39)
[2024-05-31 02:00] VITALS: BP 114/77; PULSE 82; RESP 18; O2SAT 100
== END 2024-05-31 02:58 | disposition home or self-care (01) ==
LOC: ER 17:15
DX: K70.30 Alcoholic cirrhosis of liver without ascites (principal); R10.2 Pelvic and perineal pain; E72.20 Disorder of urea cycle metabolism, unspecified; E83.42 Hypomagnesemia; E80.6 Other disorders of bilirubin metabolism; D50.9 Iron deficiency anemia, unspecified; F17.210 Nicotine dependence, cigarettes, uncomplicated; K76.6 Portal hypertension; Z88.0 Allergy status to penicillin; Z88.5 Allergy status to narcotic agent; Z88.8 Allergy status to other drugs, medicaments and biological substances; Z91.041 Radiographic dye allergy status
CPT/HCPCS: 36415; 74176; 80053; 81001; 82140; 83605; 83690; 83735; 83880; 84484; 84702; 85025; 93005; 96365; 99285; J3475